=== PATIENT | male | born 1975 | race American Indian/Alaskan Native ===

== ENCOUNTER 2017-04-12 00:56 | Emergency (ER) | payer SELFPAY ==
[2017-04-12 00:56] VITALS: BMI 58.3
[2017-04-12 01:13] VITALS: BP 137/85; TEMP 98.8
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
[2017-04-12 05:31] VITALS: PULSE 84; RESP 16; O2SAT 99
--- NOTE | 2017-04-12 07:03 | RAD ---
PROCEDURE: Radiographs of the Right Shoulder HISTORY: fall COMPARISON: No prior. FINDINGS: BONES: There is lateral proximal humeral cortical hyperostoses consistent with physiologic "tug " effects. No fracture. JOINTS: Glenohumeral and acromioclavicular osteoarthritis. SOFT TISSUES: Normal. OTHER FINDINGS: None. IMPRESSION: No fracture or dislocation. Glenohumeral and acromioclavicular arthrosis
--- NOTE | 2017-04-12 07:10 | RAD ---
PROCEDURE: Right Hand Radiographs. HISTORY: pain COMPARISON: None. FINDINGS: BONES: Fifth meta carpal shaft old healed fracture deformity noted. No acute fracture. JOINTS: Small subarticular cystic osteoarthritic changes - carpal 2nd metacarpal base. Fourth DIP hypertrophic osteoarthrosis changes SOFT TISSUES: Normal. OTHER FINDINGS: Positive ulnar variance IMPRESSION: Old 5th metacarpal healed fracture deformity. Arthrosis
== END 2017-04-12 07:15 | disposition home or self-care (01) ==
LOC: ED 00:56
DX: S01.01XA Laceration without foreign body of scalp, initial encounter (principal); Y08.89XA Assault by other specified means, initial encounter; Y93.89 Activity, other specified; Y92.89 Other specified places as the place of occurrence of the external cause